=== PATIENT | male | born 1965 | race Two or more races ===

== ENCOUNTER 2017-11-03 23:51 | Emergency (ER) | payer MEDICARE ==
[~2017-11-03] VITALS: Ht 190.5 cm; Wt 79.4 kg
[~2017-11-03 23:51] MED LIST: LITHIUM8 MEQ/5 M1 PO
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
[2017-11-04 00:37] VITALS: BP 139/89
[2017-11-04 00:38] VITALS: BP 144/91
--- NOTE | 2017-11-04 09:21 | Diagnostic Imaging Report ---
Indication: Chest pain Technique: One view of the chest Comparison: none Findings: There is some scarring at the left lateral lung base. The lungs and pleural spaces are otherwise clear. Heart size is upper limits normal. Impression: Left lateral basilar scarring. No acute process
== END 2017-11-04 00:30 ==
LOC: EDBD 23:51 → EMR 23:58
DX: S20.211A Contusion of right front wall of thorax, initial encounter (principal); V43.52XA Car driver injured in collision with other type car in traffic accident, initial encounter; Y92.410 Unspecified street and highway as the place of occurrence of the external cause; I10 Essential (primary) hypertension; F31.9 Bipolar disorder, unspecified
CPT/HCPCS: 71045; 99283